=== PATIENT | male | born 1955 | race Caucasian/White ===

== ENCOUNTER 2018-03-05 11:29 | Outpatient (CLI) ==
--- NOTE | 2018-03-05 13:06 | US ---
Exam: Ultrasound of the left upper extremity soft tissues. Comparison: None available. Reason for exam: Benign lipomas neoplasm of skin. FINDINGS: There is a heterogeneous appearing density without significant interval vascularity in the region of the left shoulder soft tissues measuring approximately 7.4 x 3.2 x 7.2 cm with imaging fin dings most consistent with a lipoma. Impression: Heterogeneous density in the left shoulder soft tissue measuring up to 7.4 cm likely a li cris. If clinical concern exists, MRI could be performed for further characterization.
== END 2018-03-05 11:30 | disposition home or self-care (01) ==
LOC: RAD 11:29
PROVIDERS: ATTEND General Practice
DX: D17.20 Benign lipomatous neoplasm of skin and subcutaneous tissue of unspecified limb (principal)
CPT/HCPCS: 76882